=== PATIENT | male | born 1945 | race Caucasian/White ===

== ENCOUNTER 2017-09-06 06:46 | Day surgery (SDC) | payer MEDICARE ==
[2017-09-06] MEDS ORDERED: PROPOFOL 200 MG/20 ML VIAL As Ordered ×2 (06:58)
[2017-09-06] MEDS: NS 1,000 ML IV (07:00)
[2017-09-06] MEDS ORDERED: LIDOCAINE 2% INJ 100 MG/5 ML SDV (FOR ANES.) As Ordered (08:18)
== END 2017-09-06 08:56 | disposition home or self-care (01) ==
LOC: M OPP 06:46
DX: Z12.11 Encounter for screening for malignant neoplasm of colon (principal); K64.8 Other hemorrhoids; D12.0 Benign neoplasm of cecum; D12.3 Benign neoplasm of transverse colon; K62.1 Rectal polyp; Z98.0 Intestinal bypass and anastomosis status; K22.8 Other specified diseases of esophagus; K29.70 Gastritis, unspecified, without bleeding; K21.9 Gastro-esophageal reflux disease without esophagitis; I10 Essential (primary) hypertension; E78.00 Pure hypercholesterolemia, unspecified; E11.9 Type 2 diabetes mellitus without complications; J45.909 Unspecified asthma, uncomplicated; Z79.82 Long term (current) use of aspirin; Z79.84 Long term (current) use of oral hypoglycemic drugs; Z96.611 Presence of right artificial shoulder joint; Z96.612 Presence of left artificial shoulder joint; Z90.49 Acquired absence of other specified parts of digestive tract
CPT/HCPCS: 45380

== ENCOUNTER → 2020-10-19 | Outpatient (CLI) | payer MEDICARE ==
[~2020-10-19] MED LIST: AMLO2.5T3 PO; ASPI81TA26 PO; ATOR40TA75 PO; CLOP75TA2; D31000TA2 PO; IRBE150T7 PO; IRBE75TA4 PO; METF500T13 PO; MONT10TA10 PO; OMEP1CAP73 PO; SYMB80INH INH; VITA500C19 PO
== END ==
LOC: M LABSMTC 12:17
PROVIDERS: ATTEND Anesthesiology
DX: Z01.812 Encounter for preprocedural laboratory examination (principal); Z20.822 Contact with and (suspected) exposure to COVID-19

== ENCOUNTER 2020-10-24 06:56 | Day surgery (SDC) | payer MEDICARE ==
[~2020-10-24] VITALS: Ht 170.2 cm; Wt 73.5 kg
[~2020-10-24 06:56] MED LIST changes: -MONT10TA10 PO; +MONT10TA97 PO; +NS 1,000 ML IV ONE
[2020-10-24] MEDS ORDERED: propofoL 200 MG/20 ML VIAL As Ordered ONE (07:35)
[2020-10-24 08:15] VITALS: BP 159/83
[2020-11-18] MEDS ORDERED: AMOX875T2 PO (13:26)
[2020-11-18] MEDS ORDERED: TYLENOL#3 PO (13:26)
[2021-04-19] MEDS ORDERED: VITA200012 PO (11:38)
[2021-04-19] MEDS ORDERED: IRBE75TA4 PO (11:38)
[2021-04-19] MEDS ORDERED: NORV5TAB PO (11:45)
== END 2020-10-24 14:02 | disposition home or self-care (01) ==
LOC: M OPP 06:56
PROVIDERS: ATTEND Internal Medicine Gastroenterology
DX: Z12.11 Encounter for screening for malignant neoplasm of colon (principal); Z86.010 Personal history of colon polyps; K64.8 Other hemorrhoids; K63.5 Polyp of colon; Z98.0 Intestinal bypass and anastomosis status; Z79.82 Long term (current) use of aspirin; Z79.84 Long term (current) use of oral hypoglycemic drugs; Z79.899 Other long term (current) drug therapy

== ENCOUNTER → 2020-11-16 | Outpatient (CLI) | payer MEDICARE ==
[~2020-11-16] MED LIST changes: +AMOX875T2 PO; +MONT10TA10 PO; -MONT10TA97 PO; -NS 1,000 ML IV ONE; +TYLENOL#3 PO
--- NOTE | 2020-11-16 12:58 | REPVR ---
PROCEDURE INFORMATION: Exam: CT Neck Without Contrast Exam date and time: 11/16/2020 11:57 AM Age: 75 years old Clinical indication: Pain; Other: Sialolithiasis TECHNIQUE: Imaging protocol: Computed tomography images of the neck without contrast. Radiation optimization: All CT scans at this facility use at least one of these dose optimization techniques: automated exposure control; mA and/or kV adjustment per patient size (includes targeted exams where dose is matched to clinical indication); or iterative reconstruction. COMPARISON: No relevant prior studies available. FINDINGS: Paranasal sinuses: There is opacification of the visualized left frontal sinus. There is opacification of ethmoid air cells and right sphenoid sinus. There is moderate left maxillary and sphenoid sinus mucosal thickening. Nasopharynx: Unremarkable. Oropharynx: Unremarkable. No significant tonsillar enlargement. Hypopharynx: Unremarkable. Larynx: Unremarkable. Normal epiglottis. Retropharyngeal space: Unremarkable. Submandibular/Parotid glands: There is diffuse expansion of the right submandibular gland with inflammatory change, compatible with sialoadenitis. There is a focal 4 mm sialolith located within the distal portion of Stensen's duct. Thyroid: Normal. No enlarged or calcified nodules. Lymph nodes: Unremarkable. No lymphadenopathy. Trachea: Visualized trachea is unremarkable. Lungs: Unremarkable as visualized. Bones/joints: There is degenerative disc disease and spondylosis, most pronounced at C4/5, C5/6 and C6/7. Soft tissues: There is diffuse right submandibular soft tissue induration. IMPRESSION: Right submandibular sialoadenitis with sialolith within Stensen's duct. Electronically signed by: Anju Case On 11/16/2020 12:58:02 PM
== END ==
LOC: M RAD 11:47
PROVIDERS: ATTEND Otolaryngology
DX: K11.20 Sialoadenitis, unspecified (principal); K11.5 Sialolithiasis

== ENCOUNTER → 2020-11-21 | Outpatient (CLI) | payer MEDICARE | LOC: M LABSMTC 09:05 | PROVIDERS: ATTEND Anesthesiology | DX: Z01.818 Encounter for other preprocedural examination (principal); Z20.822 Contact with and (suspected) exposure to COVID-19 ==

== ENCOUNTER 2020-11-25 07:03 | Day surgery (SDC) | payer MEDICARE ==
[~2020-11-25] VITALS: Ht 170.2 cm; Wt 73.7 kg
[~2020-11-25 07:03] MED LIST changes: +LR 1,000 ML IV ONE
[2020-11-25] MEDS ORDERED: fentaNYL 250 MCG/5 ML INJECTION (J3010) As Ordered ONE (07:22)
[2020-11-25] MEDS ORDERED: LIDOCAINE 2% 100MG/5ML SDV (FOR ANES.) As Ordered ONE (07:22)
[2020-11-25] MEDS ORDERED: propofoL 200 MG/20 ML VIAL As Ordered ONE (07:22)
[2020-11-25] MEDS ORDERED: ROCURONIUM BROMIDE 50 MG/5 ML VIAL As Ordered ONE (07:22)
[2020-11-25] MEDS ORDERED: MIDAZOLAM INJ 2MG/2ML VIAL (J2250 PER 1MG) As Ordered ONE (07:23)
[2020-11-25] MEDS ORDERED: LIDOCAINE W/EPINEPHRINE 1% 20ML VIAL As Ordered ONE (08:42)
[2020-11-25] MEDS ORDERED: SUGAMMADEX SODIUM 500 MG/5 ML VIAL (BRIDION) As Ordered ONE (08:55)
[2020-11-25] MEDS ORDERED: ONDANSETRON 4MG/2ML VIAL As Ordered ONE (08:55)
[2020-11-25] MEDS ORDERED: KETOROLAC 60MG 2ML VIAL As Ordered ONE (08:55)
[2020-11-25] MEDS ORDERED: EPINEPHrine 1MG/ML INJ 30ML MD-VIAL As Ordered ONE (09:06)
[2020-11-25] MEDS ORDERED: ONDANSETRON 4MG/2ML VIAL IV PRN ×2 (10:15→10:20)
[2020-11-25] MEDS ORDERED: LR 1,000 ML IV SCH (10:15)
[2020-11-25] MEDS ORDERED: METOCLOPRAMIDE INJ 10MG/2ML VIAL (J2765 PER 1) IV PRN (10:15)
[2020-11-25] MEDS ORDERED: PERCOCET 5MG/325MG TAB PO PRN (10:15)
[2020-11-25] MEDS ORDERED: fentaNYL 100 MCG/2 ML INJECTION (J3010) IV PRN (10:15)
[2020-11-25] MEDS ORDERED: NORCO, ANEXSIA 5/325MG TABLET (HYDROcodone/ACETAMINOPHEN) PO PRN (10:20)
[2020-11-25 11:23] VITALS: BP 158/80
--- NOTE | 2020-11-25 16:42 | POST-OPPD ---
Postoperative Procedure Note Date Of Procedure: Nov 25, 2020 Time Of Procedure: 08:15 PREOPERATIVE DIAGNOSIS: [Right submandibular duct stone] POSTOPERATIVE DIAGNOSIS: [Same] PROCEDURE: [Sialolithotomy and exploration of submandibular duct] SURGEON: [Jamshid] PAN PUSHER: [None] ANESTHESIA: [General] ESTIMATED BLOOD LOSS: [Less than 5 mL] FINDINGS: SPECIMENS: [None] COMPLICATIONS: [None] REPLACED: [None] DRAINS: [None] POSTOPERATIVE CONDITION: [Stable] Operative note: Jose David briscoe patient was seen in the office and diagnosed the above condition. A CT scan was done prior to the procedure which showed a stone at the distal end of the right submandibular duct. Decision was made to do a duct opening procedure to remove the stone. Risks and benefits were discussed and all questions were answered. Patient was admitted through same-day surgery program and taken to the operating room where is ministered a general anesthetic via intravenous injection he was then intubated endotracheally. The mouth gag was placed in position the tongue was retracted superiorly. The area of the punctum identified. There was good salivary flow. We placed a suture along the duct to prevent the stone from slipping posterior to the hilum area. Then palpated along the duct no obvious stone was detected. We placed a lacrimal probe into the duct and then using a 15 blade incised the skin over top down to the probe. We then splayed open the duct and explored this to the area of the stitch there was no obvious stone evident. We then placed sutures to hold the distal portion of the duct open. The suture that was placed along the duct was then removed. Palpation of the gland showed salivary flow at the completion of the procedure. Patient was then allowed to recover from anesthetic and taken the postanesthesia care area in stable condition. Ganesh Breen MD Nov 25, 2020 16:42
== END 2020-11-25 11:24 | disposition home or self-care (01) ==
LOC: M SDC 07:03
PROVIDERS: ATTEND Otolaryngology
DX: K11.5 Sialolithiasis (principal); R50.9 Fever, unspecified; I10 Essential (primary) hypertension; E78.00 Pure hypercholesterolemia, unspecified; E11.9 Type 2 diabetes mellitus without complications; K21.9 Gastro-esophageal reflux disease without esophagitis; J45.909 Unspecified asthma, uncomplicated; N40.0 Benign prostatic hyperplasia without lower urinary tract symptoms; I34.0 Nonrheumatic mitral (valve) insufficiency; Z86.73 Personal history of transient ischemic attack (TIA), and cerebral infarction without residual deficits; Z79.899 Other long term (current) drug therapy; Z79.82 Long term (current) use of aspirin; Z79.84 Long term (current) use of oral hypoglycemic drugs; Z79.51 Long term (current) use of inhaled steroids; Z79.2 Long term (current) use of antibiotics; Z87.891 Personal history of nicotine dependence
CPT/HCPCS: 42330; 88305; J1885; J2250; J2405; J3010

== ENCOUNTER → 2021-02-02 | Outpatient (REF) | payer MEDICARE ==
[~2021-02-02] MED LIST changes: -LR 1,000 ML IV ONE
[2021-02-02 14:41] LABS: APPEARANCE, URINE CLEAR (CLEAR); BACTERIA, URINE AUTO NEGATIVE (NEGATIVE); BILIRUBIN, URINE AUTO NEGATIVE (NEGATIVE); BLOOD, URINE BLOOD NEGATIVE (NEGATIVE); COLOR, URINE YELLOW (YELLOW); GLUCOSE, URINE (UA) AUTO NEGATIVE (NEGATIVE); KETONE, URINE AUTO NEGATIVE (NEGATIVE); LEUKOCYTE ESTERASE, URINE AUTO 1+ (NEGATIVE); MUCUS, URINE SMALL (NEGATIVE); NITRITE, URINE AUTO NEGATIVE (NEGATIVE); PROTEIN, URINE AUTO NEGATIVE (NEGATIVE); RBC, URINE AUTO 1 /HPF (0-3); SPECIFIC GRAVITY URINE AUTO 1.013 (1.002-1.035); SQUAMOUS EPITHELIAL CELL UR AU 0 /HPF (0-6); UROBILINOGEN, URINE AUTO 0.2 mg/dL (0.0-2.0); WBC, URINE AUTO 4 /HPF (0-3)
== END ==
LOC: M SMT 13:15
PROVIDERS: ATTEND Nurse Practitioner Women's Health
DX: R31.29 Other microscopic hematuria (principal)
CPT/HCPCS: 51798; 81001; 87086; G0463

== ENCOUNTER → 2021-04-03 | Outpatient (REF) | payer MEDICARE ==
[~2021-04-03] MED LIST changes: -MONT10TA10 PO; +MONT10TA97 PO
[2021-04-03 18:36] LABS: APPEARANCE, URINE CLEAR (CLEAR); BACTERIA, URINE AUTO NEGATIVE (NEGATIVE); BILIRUBIN, URINE AUTO NEGATIVE (NEGATIVE); BLOOD, URINE BLOOD NEGATIVE (NEGATIVE); COLOR, URINE YELLOW (YELLOW); GLUCOSE, URINE (UA) AUTO NEGATIVE (NEGATIVE); KETONE, URINE AUTO NEGATIVE (NEGATIVE); LEUKOCYTE ESTERASE, URINE AUTO NEGATIVE (NEGATIVE); MUCUS, URINE SMALL (NEGATIVE); NITRITE, URINE AUTO NEGATIVE (NEGATIVE); PROTEIN, URINE AUTO NEGATIVE (NEGATIVE); RBC, URINE AUTO 1 /HPF (0-3); SPECIFIC GRAVITY URINE AUTO 1.008 (1.002-1.035); SQUAMOUS EPITHELIAL CELL UR AU 0 /HPF (0-6); UROBILINOGEN, URINE AUTO 0.2 mg/dL (0.0-2.0); WBC, URINE AUTO 1 /HPF (0-3)
== END ==
LOC: M SMT 16:44
PROVIDERS: ATTEND Urology
DX: N39.0 Urinary tract infection, site not specified (principal)

== ENCOUNTER → 2021-04-03 | Outpatient (CLI) | payer MEDICARE ==
[~2021-04-03] MED LIST changes: +NORV5TAB PO; +VITA200012 PO
== END ==
LOC: M PLAIMG 13:52
PROVIDERS: ATTEND Urology
DX: N20.0 Calculus of kidney (principal)
CPT/HCPCS: 74018; G0463

== ENCOUNTER 2021-04-21 06:19 | Day surgery (SDC) | payer MEDICARE ==
[~2021-04-21] VITALS: Ht 170.2 cm; Wt 74.8 kg
== END 2021-04-21 10:15 | disposition home or self-care (01) ==
LOC: M SDC 06:19
PROVIDERS: ATTEND Urology
DX: N20.2 Calculus of kidney with calculus of ureter (principal); N13.39 Other hydronephrosis; R94.31 Abnormal electrocardiogram [ECG] [EKG]; M35.3 Polymyalgia rheumatica; J45.909 Unspecified asthma, uncomplicated; J44.9 Chronic obstructive pulmonary disease, unspecified; J32.9 Chronic sinusitis, unspecified; E11.9 Type 2 diabetes mellitus without complications; I25.10 Atherosclerotic heart disease of native coronary artery without angina pectoris; R01.1 Cardiac murmur, unspecified; E78.5 Hyperlipidemia, unspecified; K22.70 Barrett's esophagus without dysplasia; N40.0 Benign prostatic hyperplasia without lower urinary tract symptoms; K44.9 Diaphragmatic hernia without obstruction or gangrene; E55.9 Vitamin D deficiency, unspecified; M19.90 Unspecified osteoarthritis, unspecified site; M10.9 Gout, unspecified; Z87.891 Personal history of nicotine dependence; Z79.899 Other long term (current) drug therapy; Z79.82 Long term (current) use of aspirin; Z79.84 Long term (current) use of oral hypoglycemic drugs; Z79.51 Long term (current) use of inhaled steroids; Z86.73 Personal history of transient ischemic attack (TIA), and cerebral infarction without residual deficits
CPT/HCPCS: 52356; 74420; 82365; 88300; C1769; C2617; J0131; J0690; J1100; J2250; J2405; J3010; Q9961

== ENCOUNTER → 2022-05-15 | Outpatient (CLI) | payer MEDICARE ==
[~2022-05-15] MED LIST changes: -D31000TA2 PO; +VITA100093 PO
== END ==
LOC: M PLAIMG 14:18
PROVIDERS: ATTEND Urology
DX: N20.0 Calculus of kidney (principal)

== ENCOUNTER 2022-10-24 14:47 | Observation (INO) | payer MEDICARE ==
[~2022-10-24] VITALS: Ht 170.2 cm; Wt 72.0 kg
[2022-10-24] VITALS (9 sets, daily range): BP systolic 116–179; BP diastolic 57–106; TEMP 98.6; O2SAT 95–98
[2022-10-24] MEDS ORDERED: ASPIRIN 81MG CHEW TABLET PO ONE (15:30)
[2022-10-24 16:05] LABS: BASO # 0.1 10^3/uL (0.0-0.2); BASO % 0.8 % (0.0-1.0); EOS # 0.8 10^3/uL (0.0-0.5); HEMATOCRIT 39.1 % (42.0-52.0); HEMOGLOBIN 12.9 g/dl (13.5-17.5); LYMPH # 1.4 10^3/uL (1.5-5.0); LYMPH % 19.7 % (24.0-44.0); MEAN CORPUSCULAR HEMOGLOBIN 30.8 pg (27.0-33.0); MEAN CORPUSCULAR VOLUME 93.3 fl (80.0-96.0); MONO # 0.7 10^3/uL (0.0-0.8); MONO % 10.3 % (2.0-8.0); NEUTROPHILS # 4.2 10^3/uL (1.5-8.5); NEUTROPHILS % 57.9 % (36.0-66.0); PLATELET COUNT, AUTOMATED 256 10^3/uL (150-450); RED BLOOD COUNT 4.19 10^6/uL (4.30-6.10); WHITE BLOOD COUNT 7.2 10^3/uL (4.0-10.0)
[2022-10-24 16:18] LABS: INR 0.91; PROTHROMBIN TIME 12.5 SECONDS (12.5-14.5)
[2022-10-24 16:19] LABS: PARTIAL THROMBOPLASTIN TIME 26.2 SECONDS (24.8-34.2)
[2022-10-24 16:22] LABS: BLOOD UREA NITROGEN 15 MG/DL (9-23); CARBON DIOXIDE LEVEL 28 MMOL/L (20-31); CHLORIDE LEVEL 104 MMOL/L (98-107); CREATININE FOR GFR 0.92 MG/DL (0.70-1.30); GLOMERULAR FILTRATION RATE > 60.0 (>42); GLUCOSE, FASTING 76 MG/DL (74-106); POTASSIUM SERUM 4.1 MMOL/L (3.5-5.1); SODIUM LEVEL 140 MMOL/L (136-145)
[2022-10-24] MEDS ORDERED: MED REC IN PROGRESS XX SCH (16:55)
[2022-10-24] MEDS ORDERED: SYMB16INH INH (17:05)
[2022-10-24] MEDS ORDERED: METF-838 PO (17:05)
[2022-10-24] MEDS ORDERED: IRBE150T14 PO (17:05)
[2022-10-24] MEDS ORDERED: DOXE25CA PO (17:05)
[2022-10-24] MEDS ORDERED: IBUP-1720 PO (17:05)
[2022-10-24] MEDS ORDERED: HOME MED LIST COMPLETE! XX SCH (17:10)
[2022-10-24] MEDS ORDERED: DEXTROSE 50% 50ML SYRINGE IV PRN (17:30)
[2022-10-24] MEDS ORDERED: ACETAMINOPHEN TAB 650MG DOSE (2X325MG) PO PRN (17:30)
[2022-10-24] MEDS ORDERED: GLUCAGON INJ 1MG VIAL SC PRN (17:30)
[2022-10-24] MEDS ORDERED: GLUCOSE 4GM CHEW TABLET PO PRN (17:30)
[2022-10-24] MEDS ORDERED: MOM 30ML SUSPENSION UDC PO PRN (17:30)
[2022-10-24] MEDS: INSULIN LISPRO (NovoLOG) PER UNIT SC SCH (17:30)
[2022-10-24] MEDS ORDERED: CLOPIDOGREL 300 MG TAB (PLAVIX) PO STA (17:41)
[2022-10-24] MEDS ORDERED: DOXEPIN 25 MG CAP PO PRN (17:50)
[2022-10-24 18:36] LABS: INR 0.96
[2022-10-24 18:37] LABS: PARTIAL THROMBOPLASTIN TIME 26.5 SECONDS (24.8-34.2)
[2022-10-24] MEDS: SYMBICORT 160/4.5MCG INHALER 6GM INH SCH (19:55)
[2022-10-24] MEDS ORDERED: INSULIN LISPRO (NovoLOG) PER UNIT SC SCH (21:00)
[2022-10-24] MEDS ORDERED: ATORVASTATIN 20 MG TAB PO SCH (21:00)
[2022-10-24] MEDS ORDERED: MONTELUKAST 10 MG TAB PO SCH (21:00)
[2022-10-24] MEDS: DOCUSATE SODIUM 100MG CAPSULE PO SCH (21:22)
[2022-10-25 05:53] LABS: HEMATOCRIT 36.9 % (42.0-52.0); HEMOGLOBIN 12.2 g/dl (13.5-17.5); MEAN CORPUSCULAR HEMOGLOBIN 30.8 pg (27.0-33.0); MEAN CORPUSCULAR HGB CONC 33.1 g/dl (32.0-36.5); MEAN CORPUSCULAR VOLUME 93.2 fl (80.0-96.0); RED BLOOD COUNT 3.96 10^6/uL (4.30-6.10); WHITE BLOOD COUNT 6.4 10^3/uL (4.0-10.0)
[2022-10-25 05:54] LABS: PLATELET COUNT, AUTOMATED 221 10^3/uL (150-450)
[2022-10-25 06:00] VITALS: BP 145/74; TEMP 99; O2SAT 97
[2022-10-25 06:23] LABS: BLOOD UREA NITROGEN 15 MG/DL (9-23); CARBON DIOXIDE LEVEL 28 MMOL/L (20-31); CHLORIDE LEVEL 104 MMOL/L (98-107); CHOLESTEROL LEVEL 140 MG/DL (<200); CREATININE FOR GFR 0.92 MG/DL (0.70-1.30); GLOMERULAR FILTRATION RATE > 60.0 (>42); GLUCOSE, FASTING 106 MG/DL (74-106); HDL CHOLESTEROL 60.7 MG/DL (>40); LDL CHOLESTEROL 61.9 MG/DL (<100); NON-HDL-C 79.3 MG/DL; POTASSIUM SERUM 4.1 MMOL/L (3.5-5.1); SODIUM LEVEL 140 MMOL/L (136-145); TRIGLYCERIDES LEVEL 87 MG/DL (<150)
[2022-10-25] MEDS: INSULIN LISPRO (NovoLOG) PER UNIT SC SCH ×3 (07:30→17:30)
[2022-10-25] MEDS: SYMBICORT 160/4.5MCG INHALER 6GM INH SCH (07:42)
[2022-10-25] MEDS ORDERED: CLOPIDOGREL 75 MG TAB PO SCH (09:00)
[2022-10-25] MEDS ORDERED: ASPIRIN 81MG ENTERIC TABLET PO SCH (09:00)
[2022-10-25] MEDS ORDERED: VITAMIN D 1,000 INTERNATIONAL UNITS TABLET PO SCH (09:00)
[2022-10-25] MEDS ORDERED: ENOXAPARIN 40MG/0.4ML SYRINGE (J1650 PER 10MG) SC SCH (09:00)
[2022-10-25] MEDS ORDERED: ASCORBIC ACID 500 MG TAB PO SCH (09:00)
[2022-10-25] MEDS: DOCUSATE SODIUM 100MG CAPSULE PO SCH (09:28)
[2022-10-25] MEDS ORDERED: CLOP75TA2 PO (11:22)
[2022-10-25 14:00] VITALS: BP 133/63; TEMP 98.1; O2SAT 97
== END 2022-10-25 18:00 | disposition home or self-care (01) ==
LOC: M ED 14:47 → M ED INP 14:48 → ENRESERV 19:39 → M MSPAV 20:50
PROVIDERS: ADMIT Student in an Organized Health Care Education/Training Program; ATTEND Student in an Organized Health Care Education/Training Program
DX: I63.9 Cerebral infarction, unspecified (principal); J44.9 Chronic obstructive pulmonary disease, unspecified; J45.909 Unspecified asthma, uncomplicated; M35.3 Polymyalgia rheumatica; E11.9 Type 2 diabetes mellitus without complications; I25.10 Atherosclerotic heart disease of native coronary artery without angina pectoris; Z86.73 Personal history of transient ischemic attack (TIA), and cerebral infarction without residual deficits; E78.5 Hyperlipidemia, unspecified; M48.02 Spinal stenosis, cervical region; M54.13 Radiculopathy, cervicothoracic region; R01.1 Cardiac murmur, unspecified; I45.10 Unspecified right bundle-branch block; J32.9 Chronic sinusitis, unspecified; K22.70 Barrett's esophagus without dysplasia; K57.90 Diverticulosis of intestine, part unspecified, without perforation or abscess without bleeding; Z87.19 Personal history of other diseases of the digestive system; G47.00 Insomnia, unspecified; Z90.49 Acquired absence of other specified parts of digestive tract; N40.0 Benign prostatic hyperplasia without lower urinary tract symptoms; M19.90 Unspecified osteoarthritis, unspecified site; M10.9 Gout, unspecified; Z79.899 Other long term (current) drug therapy; Z79.82 Long term (current) use of aspirin; Z79.51 Long term (current) use of inhaled steroids; Z79.02 Long term (current) use of antithrombotics/antiplatelets; Z79.84 Long term (current) use of oral hypoglycemic drugs; Z87.891 Personal history of nicotine dependence
CPT/HCPCS: 36415; 71045; 80048; 80061; 83036; 85025; 85027; 85610; 85730; 87635; 93005; 93041; 93306; 93880; 94640; 94760; 96372; 97161; 99285; G0378; J1650; J1815

== ENCOUNTER 2023-04-30 06:26 | Day surgery (SDC) | payer MEDICARE ==
[~2023-04-30] VITALS: Ht 170.2 cm; Wt 71.3 kg
[~2023-04-30 06:26] MED LIST changes: +ATOR80TA59 PO; +CLOP75TA2 PO; +DOXE25CA PO; +IBUP-1720 PO; +IRBE150T14 PO; +IRBE150T27 PO; -IRBE150T7 PO; +IRBE75TA11 PO; -IRBE75TA4 PO; +METF-838 PO; +SYMB16INH INH
[2023-04-30] MEDS: PROPARACAINE 0.5% OPHTH SOL 15ML OD ONE (07:22)
[2023-04-30] MEDS: CYCLOPENTOLATE 1% OPHTH SOLN 2ML BTL OD SCH (07:23)
[2023-04-30] MEDS: PHENYLEPHRINE 2.5% OPHTH SOL 2ML OD SCH (07:23)
[2023-04-30] MEDS: OFLOXACIN 0.3 % (OCUFLOX) OPTH SOL 5ML OD SCH (07:23)
[2023-04-30] MEDS: TROPICAMIDE 1% OPHTH SOLN 15ML OD SCH (07:23)
[2023-04-30] MEDS: LIDOCAINE 1% SDV 5ML VIAL As Ordered ONE (07:52)
[2023-04-30] MEDS: BSS IRR 500ML/OMIDRIA 4ML IRR BAG (OR ONLY) As Ordered ONE (07:52)
[2023-04-30] MEDS: CEFUROXIME 1MG/0.1ML INTRACAMERAL INJ As Ordered ONE (07:52)
[2023-04-30] MEDS ORDERED: fentaNYL 100 MCG/2 ML INJECTION As Ordered ONE (07:57)
[2023-04-30] MEDS ORDERED: MIDAZOLAM INJ 2MG/2ML VIAL As Ordered ONE (07:57)
[2023-04-30 09:03] VITALS: BP 133/63; TEMP 97.4; O2SAT 98
== END 2023-04-30 09:19 | disposition home or self-care (01) ==
LOC: M SDC 06:26
PROVIDERS: ATTEND Ophthalmology
DX: H25.11 Age-related nuclear cataract, right eye (principal); E11.9 Type 2 diabetes mellitus without complications; I25.10 Atherosclerotic heart disease of native coronary artery without angina pectoris; Z86.73 Personal history of transient ischemic attack (TIA), and cerebral infarction without residual deficits; I10 Essential (primary) hypertension; E78.00 Pure hypercholesterolemia, unspecified; M10.9 Gout, unspecified; K21.9 Gastro-esophageal reflux disease without esophagitis; K22.70 Barrett's esophagus without dysplasia; K44.9 Diaphragmatic hernia without obstruction or gangrene; J45.909 Unspecified asthma, uncomplicated; N40.0 Benign prostatic hyperplasia without lower urinary tract symptoms; M19.90 Unspecified osteoarthritis, unspecified site; Z87.891 Personal history of nicotine dependence; Z79.899 Other long term (current) drug therapy; Z79.82 Long term (current) use of aspirin; Z79.02 Long term (current) use of antithrombotics/antiplatelets; Z79.84 Long term (current) use of oral hypoglycemic drugs; Z79.51 Long term (current) use of inhaled steroids
CPT/HCPCS: 66984; 92015; J0697; J1097; J2250; J3010; V2788

== ENCOUNTER 2023-06-11 07:15 | Day surgery (SDC) | payer MEDICARE ==
[~2023-06-11] VITALS: Ht 170.2 cm; Wt 70.0 kg
[2023-06-11] MEDS: PHENYLEPHRINE 2.5% OPHTH SOL 2ML OS SCH (07:48)
[2023-06-11] MEDS: ATROPINE SULFATE 1% OPHTH SOLN 2ML BTL OS SCH (07:48)
[2023-06-11] MEDS: PROPARACAINE 0.5% OPHTH SOL 15ML OS ONE (07:48)
[2023-06-11] MEDS: OFLOXACIN 0.3 % (OCUFLOX) OPTH SOL 5ML OS SCH (07:48)
[2023-06-11] MEDS: TROPICAMIDE 1% OPHTH SOLN 15ML OS SCH (07:48)
[2023-06-11] MEDS ORDERED: INSULIN LISPRO (NovoLOG) PER UNIT SC PRN (08:20)
[2023-06-11] MEDS ORDERED: MIDAZOLAM INJ 2MG/2ML VIAL As Ordered ONE (08:49)
[2023-06-11] MEDS ORDERED: fentaNYL 100 MCG/2 ML INJECTION As Ordered ONE (08:49)
[2023-06-11] MEDS: BSS IRR 500ML/OMIDRIA 4ML IRR BAG (OR ONLY) As Ordered ONE (08:51)
[2023-06-11] MEDS: LIDOCAINE 1% SDV 5ML VIAL As Ordered ONE (08:51)
[2023-06-11] MEDS: CEFUROXIME 1MG/0.1ML INTRACAMERAL INJ As Ordered ONE (08:52)
[2023-06-11 09:10] VITALS: BP 150/66; TEMP 97.6; O2SAT 95
== END 2023-06-11 09:20 | disposition home or self-care (01) ==
LOC: M SDC 07:15
PROVIDERS: ATTEND Ophthalmology
DX: H25.12 Age-related nuclear cataract, left eye (principal); E11.9 Type 2 diabetes mellitus without complications; I25.10 Atherosclerotic heart disease of native coronary artery without angina pectoris; I10 Essential (primary) hypertension; Z86.73 Personal history of transient ischemic attack (TIA), and cerebral infarction without residual deficits; J30.9 Allergic rhinitis, unspecified; Z79.899 Other long term (current) drug therapy
CPT/HCPCS: 66984; J0697; J1097; J2250; J3010; V2788